=== PATIENT | male | born 1985 | race Caucasian/White ===

== ENCOUNTER 2018-04-16 16:49 | Emergency (ER) | payer MEDICAID ==
[~2018-04-16] VITALS: Ht 182.9 cm; Wt 90.7 kg
[2018-04-16 16:50] VITALS: BP_SYST 131
[2018-04-16] MEDS ORDERED: ETOMIDATE 20 MG/ 10 ML VIAL (AMIDATE) IVP ONE ×2 (17:15→18:45)
[2018-04-16] MEDS ORDERED: ONDANSETRON HCL 4 MG/2 ML VIAL IVP ONE (17:30)
[2018-04-16] MEDS ORDERED: MORPHINE 4 MG/ML INJ. SYRINGE IVP ONE (17:30)
[2018-04-16] MEDS ORDERED: MORPHINE 2 MG/ML INJ. SYRINGE IVP ONE (18:15)
[2018-04-16] MEDS ORDERED: KETOROLAC TROMETHAMINE 30 MG VIAL IVP ONE (18:30)
[2018-04-16 19:30] VITALS: BP_SYST 130
== END 2018-04-16 19:30 | disposition home or self-care (01) ==
LOC: SED 16:49
DX: S43.004A Unspecified dislocation of right shoulder joint, initial encounter (principal); Z88.0 Allergy status to penicillin; Z88.1 Allergy status to other antibiotic agents; Z88.8 Allergy status to other drugs, medicaments and biological substances; X58.XXXA Exposure to other specified factors, initial encounter; Y93.51 Activity, roller skating (inline) and skateboarding; Y92.89 Other specified places as the place of occurrence of the external cause; Y99.8 Other external cause status
CPT/HCPCS: 23650; 73020; 73030; 96374; 96375; 99152; 99285; J1885; J2270 ×2; J2405; J3490

== ENCOUNTER 2020-05-31 11:02 | Emergency (ER) | payer SELFPAY ==
[~2020-05-31] VITALS: Ht 182.9 cm; Wt 86.2 kg
[2020-05-31 11:02] VITALS: BP_SYST 115
--- NOTE | 2020-05-31 11:02 | NUR ---
BROUGHT BACK TO BED #5 AND TRIAGED. REPORT GIVEN TO JACOB
--- NOTE | 2020-05-31 11:30 | NUR ---
ER Dr. Garza at bedside examining patient.
--- NOTE | 2020-05-31 11:33 | NUR ---
Patient presented to ER C/O abdominal pain. Patient A&Ox4, ambulatory to ER, afebrile, pain 2/, denies N/V/D, gas, bloating. Patient states he has epigastric pain with gas and bloating intermittent x2 months.
--- NOTE | 2020-05-31 11:45 | NUR ---
Jose zaldivar in [facility] - 05/31/20 at 1219 by SDEDTD WYATT Lieberman at bedside examining patient.
[2020-05-31 11:47] LABS: BASOPHILS # (AUTO) 0.1 K/uL (0.0-0.2); BASOPHILS % (AUTO) 0.8 % (0.0-2.0); EOSINOPHILS # (AUTO) 0.6 K/uL (0.0-0.4); EOSINOPHILS % (AUTO) 7.3 % (0.0-4.0); HEMATOCRIT 43.8 % (36-54); HEMOGLOBIN 14.8 g/dL (14.0-18.0); LYMPHOCYTES # (AUTO) 1.7 K/uL (1.0-5.5); LYMPHOCYTES % (AUTO) 21.5 % (20.5-51.5); MEAN CORPUSCULAR HEMOGLOBIN 32 pg (27-31); MEAN CORPUSCULAR HGB CONC 34 % (32-36); MEAN CORPUSCULAR VOLUME 95 fL (79.0-98.0); MONOCYTES # (AUTO) 0.5 K/uL (0.0-1.0); MONOCYTES % (AUTO) 6.1 % (1.7-9.3); NEUTROPHILS % (AUTO) 64.3 % (40.0-70.0); PLATELET COUNT (AUTO) 187 K/uL (130-430); RED BLOOD CELL COUNT(AUTO) 4.63 MIL/uL (4.2-6.2); RED CELL DISTRIBUTION WIDTH 13.1 % (9.0-15.0); WHITE BLOOD COUNT (AUTO) 7.7 K/uL (4.8-10.8)
--- NOTE | 2020-05-31 11:50 | NUR ---
Note zen in ED - 05/31/20 at 1220 by SDEDTD Patient presented to ER C/O abdominal pain. Patient A&Ox4, ambulatory to ER, afebrile, pain 10/25, denies N/V/D, gas, bloating. Patient states he has epigastric pain with gas and bloating intermittent x2 months
--- NOTE | 2020-05-31 11:55 | NUR ---
# 18 gauge angiocath placed to rigtht arm. Use of asceptic technique. Opsite placed over site. Blood return noted. Blood for lab drawn from site. Flushed with 10 cc of normal saline. No evidence of infiltration noted. PATIENT STATES HE FEELS HYPOGLYCEMIC, ASKED IF HE COULD HAVE SOMETHING TO EAT WHILE I WAS DRESSING IV SITE. PT HAD VASOVAGAL WHILE LAYING IN GURNEY, DIAPHORETIC AND RESPONDING VERBALLY. DR. URIAS CALLED TO BEDSIDE, ONEAL RN & MARGARITO RN AT BEDSIDE. DR URIAS ASSESSED PATIENT. ACCUCHECK 103.
[2020-05-31 11:59] LABS: CALCIUM 8.4 mg/dL (8.4-11.0); CREATININE 0.98 mg/dL (0.55-1.30)
[2020-05-31] MEDS ORDERED: NACL 0.9% 1,000 ML IV ONE (12:04)
[2020-05-31 12:05] LABS: ALBUMIN 3.5 g/dL (3.4-4.8); TOTAL BILIRUBIN 0.5 mg/dL (0.0-1.0)
--- NOTE | 2020-05-31 12:10 | NUR ---
PT TO Radiology with staff
--- NOTE | 2020-05-31 12:20 | NUR ---
PT TO ER BED 5 FROM RADIOLOGY, A&OX4
[2020-05-31 12:58] LABS: BILIRUBIN,URINE NEGATIVE (NEGATIVE); BLOOD, URINE NEGATIVE (NEGATIVE); CLARITY/URINE CLEAR (CLEAR); COLOR,URINE YELLOW (YELLOW); GLUCOSE,URINE NEGATIVE (NEGATIVE); KETONES,URINE NEGATIVE (NEGATIVE); LEUKOCYTE ESTERASE ,URINE NEGATIVE (NEGATIVE); NITRITE, URINE NEGATIVE (NEGATIVE); PH,URINE 6.5 (5.0-8.0); PROTEIN URINE NEGATIVE (NEGATIVE); UROBILINOGEN,URINE 0.2 (0.2-1.0)
[2020-05-31 13:08] VITALS: BP_SYST 115
--- NOTE | 2020-05-31 13:09 | NUR ---
Patient given written and verbal discharge instructions and verbalizes understanding. ER MD discussed with patient the results and treatment provided. Patient in stable condition. ID arm band removed. No Rx given. Patient educated on pain management and to follow up with PMD. Pain Scale 0/10 . Opportunity for questions provided and answered. Medication side effect fact sheet provided.
== END 2020-05-31 13:09 | disposition home or self-care (01) ==
LOC: SED 11:02
DX: R10.13 Epigastric pain (principal); J45.909 Unspecified asthma, uncomplicated; Z88.0 Allergy status to penicillin; Z88.1 Allergy status to other antibiotic agents
CPT/HCPCS: 36415; 74176; 80053; 81003; 82962; 83690; 85025; 96360; 99284; J7030